=== PATIENT | male | born 1990 | race Caucasian/White ===

== ENCOUNTER 2022-05-19 16:17 | Outpatient (REF) | payer MEDICAID, SELFPAY ==
[2022-05-21 10:55] LABS: COVID-19 RT-PCR UVMMC Result Negative (Negative)
== END 2022-05-19 16:18 | disposition home or self-care (01) ==
LOC: LBN 16:17
PROVIDERS: Visit Provider Physician Assistant Medical
DX: Z20.822 Contact with and (suspected) exposure to COVID-19 (principal); J02.9 Acute pharyngitis, unspecified
CPT/HCPCS: U0003; 87081

== ENCOUNTER 2022-05-19 19:38 | Outpatient (CLI) | payer MEDICAID, SELFPAY ==
--- NOTE | 2022-05-19 | DI.RAD_ITS ---
Exam(s) XR CHEST 2V PA LATERAL EXAM: XR CHEST 2V PA LATERAL CLINICAL HISTORY: COUGH R05.8, EXPOSED TO BACTERIAL PNEUMONIA, NEG COVID RAPID TECHNIQUE: 2D digital imaging was performed. COMPARISON: No exams were available for comparison FINDINGS: HEART: Normal size. Aorta: Not dilated. PULMONARY VASCULATURE: Normal. LUNGS: Clear. PLEURAL SPACE: No pleural effusion or pneumothorax. BONE:Unremarkable for age. IMPRESSION: No acute abnormality. DATA REPOSITORY: RADIATION DOSE DELIVERED:
== END 2022-05-19 19:58 ==
PROVIDERS: Visit Provider Physician Assistant Medical
DX: R05.8 Other specified cough (principal)
CPT/HCPCS: 71046

== ENCOUNTER 2023-05-10 02:11 | Outpatient (CLI) | payer MEDICAID, SELFPAY ==
[2023-05-10 12:36] LABS: Calculated LDL 110 mg/dL (<100); Cholesterol 160 mg/dL (<200); HDL Cholesterol 39 mg/dL (40-60); Triglyceride 56 mg/dL (<150)
[2023-05-10 12:39] LABS: Hemoglobin A1C 5.5 % (<5.7)
== END 2023-05-10 02:12 | disposition home or self-care (01) ==
LOC: LOS 02:11
PROVIDERS: PCP Nurse Practitioner Family; Visit Provider Nurse Practitioner Family
DX: Z13.29 Encounter for screening for other suspected endocrine disorder (principal); Z13.220 Encounter for screening for lipoid disorders; Z13.1 Encounter for screening for diabetes mellitus
CPT/HCPCS: 36415; 80061; 83036; 84443

== ENCOUNTER 2024-05-30 00:48 | Outpatient (CLI) | payer OTHER, SELFPAY ==
[2024-05-30 17:01] LABS: Calculated LDL 79 mg/dL (<100); Cholesterol 149 mg/dL (<200); HDL Cholesterol 37 mg/dL (>or=40); Triglyceride 168 mg/dL (<150)
[2024-05-30 17:27] LABS: Hemoglobin A1C 5.6 % (<5.7)
== END 2024-05-30 00:49 | disposition home or self-care (01) ==
LOC: LBO 00:49
PROVIDERS: PCP Nurse Practitioner Family; Visit Provider Nurse Practitioner Family
DX: Z13.220 Encounter for screening for lipoid disorders (principal); Z13.1 Encounter for screening for diabetes mellitus
CPT/HCPCS: 36415; 80061; 83036